=== PATIENT | male | born 1940 | race Caucasian/White ===

== ENCOUNTER 2017-03-28 23:12 | Emergency (ER) | payer MEDICARE ==
[2017-03-28] MEDS ORDERED: DOCUSATE SODIUM 100 MG CAPSULE PO ONE (23:44)
--- NOTE | 2017-03-29 00:51 | ER PHYSICIAN DOCUMENTATION ---
Physician Documentation [facility] Name:Harish Ríos Age:76 yrs Sex:Male :1940 Arrival Date:03/28/2017 Time:23:12 Bed4 Private MD: Jose Valentine Disposition: 03/28/17 23:31 Discharged to Home/Self Care. Impression: Constipation. - Condition is Good. - Discharge Instructions: CONSTIPATION (Adult). - Medical Reconciliation form form. - Follow up: Private Physician; When: As needed; Reason: If symptoms return. - Problem is an acute exacerbation. - Symptoms have improved. HPI: 03/28 23:27 This 76 yrs old Male presents to ER via Walk In with complaints of sc Constipation. 23:27 The patient presents to the emergency department with pain in the rectal area, that is sc mild. Onset: The symptom(s)/episode began/occurred today. Context: the patient last BM yesterday AM, usually daily, dulcolax and lubricant at home without relief. Associate signs and symptoms: The patient has no apparent associated signs or symptoms. Historical: - Allergies: PENICILLINS; - Tetanus: < 10 years. - Ebola Screening: : Patient negative for fever greater than or equal to 101.5 degrees Fahrenheit, and additional compatible Ebola Virus Disease symptoms. Patient denies exposure to infectious person. Patient denies travel to an Ebola-affected area in the 21 days before illness onset. No symptoms or risks identified at this time. . - Immunization history: Flu Vaccine < 1 year. - Social history: Smoking status: Patient states former smoker of tobacco. ROS: 23:29 Constitutional: Negative for fever, chills, and weight loss. sc Eyes: Negative for injury, pain, redness, and discharge. ENT: Negative for injury, pain, and discharge. Neck: Negative for injury, pain, and swelling. Cardiovascular: Negative for chest pain, palpitations, and edema. Respiratory: Negative for shortness of breath, cough, wheezing, and pleuritic chest pain. Back: Negative for injury and pain. MS/Extremity: Negative for injury and deformity. Skin: Negative for injury, rash, and discoloration. 23:29 Neuro: Negative for headache, weakness, numbness, tingling, and seizure. sc 23:29 Abdomen/GI: Positive for constipation, Negative for abdominal pain, nausea, vomiting, diarrhea, abdominal cramps, abdominal distension, anorexia, dysphagia, hematemesis, black/tarry stool. Exam: Constitutional: This is a well developed, well nourished patient who is awake, alert, and in no acute distress. Head/Face: Normocephalic, atraumatic. Eyes: Pupils equal round and reactive to light, extra-ocular motions intact. Lids and lashes normal. Conjunctiva and sclera are non-icteric and not injected. Cornea within normal limits. Periorbital areas with no swelling, redness, or edema. Cardiovascular: Regular rate and rhythm with a normal S1 and S2. No gallops, murmurs, or rubs. Normal PMI, no JVD. No pulse deficits. Respiratory: Lungs have equal breath sounds bilaterally, clear to auscultation and percussion. No rales, rhonchi or wheezes noted. No increased work of breathing, no retractions or nasal flaring. Back: No spinal tenderness. No costovertebral tenderness. Full range of motion. Skin: Warm, dry with normal turgor. Normal color with no rashes, no lesions, and no evidence of cellulitis. MS/ Extremity: Pulses equal, no cyanosis. Neurovascular intact. Full, normal range of motion, negative Homans's, calves equal bilaterally. 23:30 Neuro: Awake and alert, GCS 15, oriented to person, place, time, and situation. sc Cranial nerves II-XII grossly intact. Motor strength 5/5 in all extremities. Sensory grossly intact. Cerebellar exam normal. Normal gait. 23:30 Abdomen/GI: Inspection: abdomen appears normal, Bowel sounds: normal, Palpation: abdomen is soft and non-tender, Rectal exam: the exam is deferred. Vital Signs: 23:31 BP 158 / 96; Pulse 62; Resp 18; Temp 97.7(O); Pulse Ox 92% ; Weight 90.72 kg; Height 5 bw2 ft. 10 in. (177.80 cm); Pain 2/10; 03/29 00:48 BP 174 / 78; Pulse 80; Resp 18; Temp 98(O); Pulse Ox 92% ; Pain 0/10; bw2 03/28 23:31 Body Mass Index 28.70 (90.72 kg, 177.80 cm) bw2 MDM: 03/28 23:17 Patient medically screened. md 23:30 Differential diagnosis: constipation. Data reviewed: vital signs, nurses notes, and as sc a result, I will continue to observe the patient. Counseling: I had a detailed discussion with the patient and/or guardian regarding: the historical points, exam findings, and any diagnostic results supporting the discharge/admit diagnosis, the need for outpatient follow up, to return to the emergency department if symptoms worsen or persist or if there are any questions or concerns that arise at home. Dispensed Medications: 23:32 Drug: Magnesium Citrate Liquid 300 ml; Route: PO; bw2 23:38 Follow up: Response: No adverse reaction bw2 23:38 Drug: Colace 100 mg; Route: PO; bw2 23:38 Follow up: Response: No adverse reaction bw2 Signatures: Jose Schwarz MD MD md Evelina Araujo bw2
--- NOTE | 2017-03-29 00:51 | ER NURSING DOCUMENTATION ---
Nurse's Notes [facility] Name:Harish Ríos Age:76 yrs Sex:Male :1940 Arrival Date:03/28/2017 Time:23:12 Bed4 Private MD: Diagnosis:Constipation Presentation: 03/28 23:15 Acuity: MARTÍN 3 bw2 23:20 Presenting complaint: Patient states: pt states he has not had a bowel movement x 1 bw2 day. pt states he is constipated. Transition of care: patient was not received from another setting of care. 23:20 Method Of Arrival: Walk In bw2 Triage Assessment: 23:30 General: Appears in no apparent distress, uncomfortable, Behavior is appropriate for bw2 age. Pain: Complains of pain in lower abdomen. Historical: - Allergies: PENICILLINS; - Tetanus: < 10 years. - Ebola Screening: : Patient negative for fever greater than or equal to 101.5 degrees Fahrenheit, and additional compatible Ebola Virus Disease symptoms. Patient denies exposure to infectious person. Patient denies travel to an Ebola-affected area in the 21 days before illness onset. No symptoms or risks identified at this time. . - Immunization history: Flu Vaccine < 1 year. - Social history: Smoking status: Patient states former smoker of tobacco. Screenin:32 Infectious Disease Risk None. Abuse screen: Denies threats or abuse. Nutritional bw2 screening: No deficits noted. Assessment: 23:32 See Triage Assessment done by same RN. bw2 Vital Signs: 23:31 BP 158 / 96; Pulse 62; Resp 18; Temp 97.7(O); Pulse Ox 92% ; Weight 90.72 kg; Height 5 bw2 ft. 10 in. (177.80 cm); Pain 2/10; 03/29 00:48 BP 174 / 78; Pulse 80; Resp 18; Temp 98(O); Pulse Ox 92% ; Pain 0/10; bw2 03/28 23:31 Body Mass Index 28.70 (90.72 kg, 177.80 cm) bw2 ED Course: 03/28 23:13 Patient arrived in ED. em3 23:14 Evelina Araujo is Primary Nurse. bw2 23:15 Triage completed. bw2 23:17 Jose Schwarz MD is Attending Physician. de 23:32 Valuables Remains with patient Patient has correct armband on for positive bw2 identification. Placed in gown. 06 00:42 py states he had a bowel movement. pt states that he fells much better. bw2 Administered Medications: 03/28 23:32 Drug: Magnesium Citrate Liquid 300 ml; Route: PO; bw2 23:38 Follow up: Response: No adverse reaction bw2 23:38 Drug: Colace 100 mg; Route: PO; bw2 23:38 Follow up: Response: No adverse reaction bw2 Output: 03/29 00:42 Stool: 1 (Formed Stool) ; Total: 0ml. bw2 Outcome: 03/28 23:31 Discharge ordered by MD. gallo 06 00:48 Discharged to home ambulatory. bw2 Condition: improved Discharge Assessment: Patient awake, alert and oriented x 3. No cognitive and/or functional deficits noted. Patient verbalized understanding of disposition instructions. Discharge instructions given to patient, Instructed on discharge instructions, follow up and referral plans. medication usage, Demonstrated understanding of instructions. 00:49 Patient left the ED. bw2 Signatures: Jose Schwarz MD MD de Maurizio Toledo3 Evelina Araujo bw2
== END 2017-03-29 00:50 | disposition home or self-care (01) ==
LOC: ER 23:12
DX: K59.00 Constipation, unspecified (principal)
CPT/HCPCS: 99283